=== PATIENT | female | born 1945 | race Caucasian/White ===

== ENCOUNTER 2019-07-09 01:09 | Day surgery (SDC) | payer MEDICARE, SELFPAY ==
[2019-06-24 12:36] VITALS: BMI 26.5
[2019-07-09] VITALS (9 sets, daily range): BP systolic 154–176; BP diastolic 68–95; PULSE 69–86; RESP 13–18; TEMP 36.2–36.4; O2SAT 92–100
[2019-07-09] MEDS: LACTATED RINGERS 1,000 ML 30 ML IV CONT ×2 (06:30→10:10)
[2019-07-09] MEDS: CELECOXIB 200 MG CAPSULE PO (06:40)
--- NOTE | 2019-07-09 07:03 | WPDANESEPPF ---
Anes - Initial Pre Proc Eval Procedure: Operation Date: 07/09/19 07:30 Proposed Procedures p Right Rotator Cuff Repair with Distal Clavicle Excision - Carlos Rosas MD Date/Time: 07/09/19 07:03 Surgeon: Carlos Rosas MD Pre Op Diagnosis: Right Rotator Cuff Tear, AC joint arthritis Patient Data Age: 73 Gender: F Height: 1.6 m Weight: 68.05 kg Allergies Allergy/AdvReac Type Severity Reaction Status Date / Time meperidine [From Demerol] Allergy nausea/vomi Verified 07/09/19 06:58 ting Home Medications Medication Instructions Recorded Confirmed Type tizanidine 4 mg capsule 4 mg PO TID PRN 04/26/19 06/24/19 History tramadol 50 mg tablet 50 mg PO Q6H PRN 04/26/19 06/24/19 History ibuprofen [Motrin IB] 80 mg PO DAILY 06/24/19 07/09/19 History Patient hx anesthesia problems: none Family hx anesthesia problems: none PMFSH Past Medical History Medical History (Updated 07/09/19 @ 07:04 by Allen Church MD) Arthritis Overweight (BMI 25.0-29.9) Partial deafness of right ear Right shoulder pain Rotator cuff tear Seasonal allergic rhinitis Vision abnormalities Surgical History Surgical History (Updated 06/17/19 @ 17:40 by DELONTE Lewis) H/O tubal ligation History of left breast biopsy Hx of tonsillectomy Social History Social History Smoking status: Never smoker Alcohol intake: never Substance use: unknown Gender identity (if verbalized by the patient): Female Spiritual care concerns: No Anes - Eval Final PreProcedure Day of Procedure 07/09/19 07:03 Patient weight: overweight Heart: regular rate and rhythm Lungs: clear to auscultation and normal air movement Airway: Mallampati scale class II Neurological: alert and oriented Last oral intake: >/= 8 hours ASA classification: II Emergent: no Anesthetic plan: proceed Anesthesia type and monitoring: general ETT Informed Consent: The patient's anesthetic plan and its attendant risks and benefits were discussed with the patient/family/POA. Questions were solicited and answers provided to the satisfaction of the patient/family/POA.
--- NOTE | 2019-07-09 07:34 | WPDHPUPDATE1 ---
History and Physical Update Update Date/Time: 07/09/19 07:34 History and Physical has been reviewed, including an updated exam of the patient. There are NO changes in the patient's condition. Risks, benefits, and alternatives have been discussed and questions answered. Patient agrees to proceed with procedure.
[2019-07-09] MEDS: ceFAZolin 2 GM/D5W 50 ML 2 GM/50 ML BAG IVPB (07:49)
--- NOTE | 2019-07-09 07:50 | WPDANESPNB ---
Anes - Peripheral Nerve Block Date/Time: 07/09/19 07:50 I have discussed with the patient/family/POA the placement of a peripheral nerve block for post-operative pain management, including associated risks, benefits, complications, and side effects. Alternative methods of post-operative analgesia were detailed. Questions were solicited and answers provided to the satisfaction of the patient/family/POA. Time-Out: A pre-procedural Time-Out was completed immediately before starting the procedure and confirmed: Patient Identification, Site, Procedure, Patient Position and the Availability of Requisite Equipment. Clinical Indications: Acute post-operative pain management requested by the operative surgeon. Nerve Block Insertion Note Anes-nerve block: supraclavicular right Patient position: supine Skin prep: chlorhexidine Needle: 22 gauge, stimulating, insulated echogenic needle. Needle length: 80 mm Technique: ultrasound (in plane) Injectate: bupivacaine 0.5% with epi 5 mcg/ml (20cc) Observations: tolerated well Complications: none Procedure start time:: 735 Procedure end time:: 740
--- NOTE | 2019-07-09 10:04 | PM.OP ---
Procedure Note - Brief Procedure Note - Brief Date of procedure: 07/09/19 Pre-op diagnosis: Right Rotator Cuff Tear, AC joint arthritis Post-op diagnosis: same Procedure performed: R ROT CUFF REPAIR WITH DCE Anesthesia: GETA Surgeon: Carlos Rosas MD Estimated blood loss (mL): 20 Complications: No immediate complications Condition: stable Disposition: PACU
--- NOTE | 2019-07-09 13:49 | OP_ITS ---
DATE OF PROCEDURE: 07/09/2019 PREOPERATIVE DIAGNOSES: Right rotator cuff tear and acromioclavicular joint degenerative joint disease. POSTOPERATIVE DIAGNOSES: Right rotator cuff tear and acromioclavicular joint degenerative joint disease. PROCEDURE: Repair of right rotator cuff with distal clavicle excision. ANESTHESIA: General. COMPLICATIONS: None. INDICATIONS: This is a 73-year-old female with a history of right shoulder pain and greater than 50% rotator cuff tear and severe AC joint DJD with inferiorly directed osteophytes. She was indicated for repair of rotator cuff tear and distal clavicle excision. DESCRIPTION OF PROCEDURE: The patient was taken to the operating room in stable condition and placed in supine position. General anesthesia was induced and the patient was placed in beach chair position and the right upper extremity prepared sterilely from the fingers to the axillary and cervical region. Incision was made in between the AC joint and anterolateral acromion down to the subcutaneous tissues. The AC joint was identified. It was incised. There was severe arthrosis to the AC joint and distal clavicle. Distal clavicle excision was performed removing also osteophytes from the inferior surface of the distal clavicle. Also part of the acromion which had a large osteophyte was removed as well. The AC joint was irrigated and the capsule was approximated with #0 Vicryl suture. Next a mini open incision was made through the deltoid muscle exposing the subacromial space. A limited acromioplasty was performed and then bursectomy was performed and then the rotator cuff tear was observed. It was a full-thickness tear and the tear was approximately 1.5 cm from anterior to posterior and there was about 0.5 cm of retraction. The greater tuberosity was debrided to good bleeding bone and then 3 Arthrex 5.5 suture anchors were inserted into the greater tuberosity and using #2 FiberWire the rotator cuff was repaired back to the greater tuberosity. The repair was excellent. The wound was irrigated thoroughly. There was no impingement of the acromion on the repair. The scar tissue was digitally lysed with palpation in the subacromial space. The wound was irrigated thoroughly once again using antibiotic fluid and then the deltoid was repaired using #2 FiberWire and 0 Vicryl suture. Subcutaneous tissue was approximated with 2-0 Vicryl and the skin was approximated with a running 3-0 Quill, and Dermabond was placed. Sterile dressing was applied. The patient then was placed back in the supine position, extubated and sent to recovery. [place] I MT: Natividad
== END 2019-07-09 12:17 | disposition home or self-care (01) ==
PROVIDERS: PCP Family Medicine; Visit Provider Orthopaedic Surgery
PROC: (CPT 23420; principal; 2019-07-09 07:30)
DX: M75.101 Unspecified rotator cuff tear or rupture of right shoulder, not specified as traumatic (principal); M19.011 Primary osteoarthritis, right shoulder; G89.18 Other acute postprocedural pain; J30.2 Other seasonal allergic rhinitis
CPT/HCPCS: 23412; 23120; 64415; A9270; C1713; J0330; J0690; J1100; J2250; J2405; J2704; J3010; J7120

== ENCOUNTER 2020-02-09 13:58 | Outpatient (CLI) | payer MEDICARE, SELFPAY ==
--- NOTE | ~2020-02-09 | MM_ITS ---
EXAMINATION: MM screening kasia BI w christofer HISTORY: Screening TECHNIQUE: Craniocaudal and mediolateral oblique 3-D tomosynthesis images were obtained and synthetic 2-D images were generated. CAD analysis was submitted and interpreted. COMPARISON: Comparison to multiple prior studies sequentially, with oldest reviewed study dated 01/26. BREAST PARENCHYMAL COMPOSITION: There are scattered areas of fibroglandular density. FINDINGS: There is no evidence of suspicious mass, calcification, or architectural distortion to sugg est malignancy in either breast. There has been no suspicious interval change. IMPRESSION: 1. No mammographic evidence of malignancy. 2. Recommend routine screening mammography in one year. BI-RADS Category 1: Negative Reviewed, dictated and finalized at location [facility].
== END 2020-02-09 13:59 | disposition home or self-care (01) ==
LOC: ANHIMG 14:01
PROVIDERS: PCP Family Medicine; Visit Provider Family Medicine
DX: Z12.31 Encounter for screening mammogram for malignant neoplasm of breast (principal)
CPT/HCPCS: 77063; 77067

== ENCOUNTER 2021-12-05 16:11 | Emergency (ER) | payer MEDICARE, SELFPAY ==
[2021-12-05] VITALS (9 sets, daily range): BP systolic 74–128; BP diastolic 51–76; PULSE 51–70; RESP 13–98; TEMP 37.1; O2SAT 93–99
--- NOTE | ~2021-12-05 | CT_ITS ---
EXAMINATION: CT cervical spine wo con DATE: 12/05/2021 17:16 INDICATION: Fall, striking head on floor. Neck pain. TECHNIQUE: Computed tomography (CT) of the cervical spine was performed without intravenous contrast. Automated exposure control and iterative reconstruction technique were employed. Exam dose: 201.52 mGy-cm total exam DLP. COMPARISON: None FINDINGS: There is straightening of the cervical spine which may be due to positioning and/or muscle spasm. There is fusion at the anterior and posterior elements at C2-3.. Mild degenerative disc disease at C2-3. Moderate ascites severe degenerative disease at C4-5, C5-6 and C6-7 mildly prominent posterior spurri ng at each of these levels. Prominent degenerative disease at T2-3 and T3-4. There is degenerative change at the apophyseal and uncovertebral joints throughout the cervical spine . No fracture or dislocation or locked facet or prevertebral soft tissue swelling. C1 and C2 are normal ly aligned and the odontoid process is intact. IMPRESSION: Straightening, which may be due to positioning and/or muscle spasm No fracture or dislocation or locked facet Extensive cervical spondylosis Reviewed, dictated and finalized at [facility]. Reviewed, dictated and finalized at location A.
--- NOTE | ~2021-12-05 | XR_ITS ---
EXAMINATION: XR chest 2V 12/05/2021 17:05 INDICATION: Weakness PROCEDURE: 2 view chest COMPARISON: No prior studies for comparison. FINDINGS: The lungs are clear. The cardiomediastinal silhouette is within normal limits. There are no pleural effusions. There is no pneumothorax suspected. IMPRESSION: 1: NO ACUTE CARDIOPULMONARY DISEASE. Reviewed, dictated and finalized at location A.
--- NOTE | ~2021-12-05 | CT_ITS ---
EXAMINATION: CT brain wo con DATE: 12/05/2021 17:16 INDICATION: Patient fell, striking head on floor. Dizziness. Neck pain. TECHNIQUE: Computed tomography (CT) of the head was performed without intravenous contrast. The mA wa s adjusted according to patient size. Iterative reconstruction technique was employed. Exam dose: 52 9.67 mGy-cm total exam DLP. COMPARISON: None FINDINGS: No intracranial mass lesion or hemorrhage or cerebrovascular accident is detected. No midli ne shifts or mass effect. No subdural or epidural hematoma. Mild cerebral atherosclerosis. No fracture or bone destruction of the cranial vault. There is some mucoperiosteal thickening of the upper aspect of the barely included right maxillary si nus. The frontal sinuses are not developed. The sphenoid sinuses are unremarkable. There is minimal d evelopment of the mastoid air cells. IMPRESSION: No skull fracture or acute intracranial abnormality Reviewed, dictated and finalized at [facility]. Reviewed, dictated and finalized at location [facility].
--- NOTE | 2021-12-05 16:28 | ECG_ITS ---
Measurements Intervals [place] Rate: 50 P: 60 UT: 195 QRS: 70 QRSD: 80 T: 61 QT: 401 QTc: 366 Interpretive Statements SINUS BRADYCARDIA BORDERLINE ECG Electronically Signed On 12-05-2021 16:38:20 CDT by Erick Foss D.O.
[2021-12-05 16:40] LABS: Basophils Percent Auto 0.2 % (0.2-1.2); Hematocrit 38.1 % (37.0-47.0); Hemoglobin 12.8 g/dL (12.0-15.0); Lymphocytes Absolute Auto 1.11 K/mm3 (0.9-3.2); Lymphocytes Percent Auto 24.8 % (18.3-44.2); Mean Corpuscular HGB Conc 33.6 g/dl (32-36); Mean Corpuscular Hemoglobin 29.4 pg (26-34); Mean Corpuscular Volume 87.4 fl (80-100); Monocytes Absolute Auto 0.3 K/mm3 (0.1-0.6); Neutrophils Absolute Auto 3.1 K/mm3 (1.3-6.7); Platelet Count Result 147 k/mm3 (150-375); Red Blood Count 4.36 M/mm3 (4.2-5.4); Red Cell Distribution Width 13.8 % (11.5-14.5); White Blood Count 4.5 K/mm3 (4.5-10.0)
--- NOTE | 2021-12-05 16:48 | PC.NURSE ---
pt is refusing to go to get her x-ray. Nurse notified
[2021-12-05 16:51] LABS: Alanine Aminotransferase 36 U/L (6-35); Albumin Level 4.3 g/dL (3.5-5.1); Alkaline Phosphatase 62 U/L (38-126); Anion Gap 8 mmol/L (8-16); Aspartate Amino Transferase 52 U/L (14-36); Bilirubin,Total 0.3 mg/dL (0.2-1.3); Blood Urea Nitrogen 14 mg/dL (7-17); Calcium 8.4 mg/dL (8.4-10.2); Carbon Dioxide 23 mmol/L (22-30); Chloride 103 mmol/L (98-107); Estimated CRCL calculation 51 ml/min; Estimated Glomerular Filt Rate > 60; Glucose 154 mg/dL (65-110); Potassium 3.3 mmol/L (3.4-5.0); Sodium 134 mmol/L (137-145)
[2021-12-05] MEDS: ONDANSETRON INJ 4 MG/2 ML VIAL (17:32)
[2021-12-05] MEDS: SODIUM CHLORIDE 0.9% IV 1,000 ML 999 ML IV CONT ×2 (17:32→19:01)
[2021-12-05 18:25] LABS: Appearance Urine Clear (Clear); Bilirubin Urine Negative (Negative); Blood Urine Negative (Negative); Color Urine Yellow (Yellow); Glucose Urine UA Negative (Negative); Ketones Urine Negative (Negative); Leukocyte Esterase Ur Trace LEU/UL (Negative); Nitrate Urine Negative (Negative); Protein Urine Negative (Negative); Urobilinogen Urine 0.2 mg/dL (<2.0); pH Urine 5.5 (5.0-9.0)
--- NOTE | 2021-12-05 18:49 | ED.GENADULT ---
HPI - General Adult General Chief complaint: Fall Stated complaint: weakness, dizziness Time Seen by Provider: 12/05/21 16:18 History of Present Illness HPI narrative: Patient is a 76-year-old female who presents ER with feeling fatigued and dizzy. Ongoing over the last couple days. Feels dizzy with lying to sitting sitting to standing. No loss of consciousness. No fevers or chills or sweats. Patient did fall 2 days ago striking her head. She had some pain in her neck and was scheduled for an outpatient x-ray. No numbness or tingling in the arms or legs. She is not on blood thinner. Denies focal weakness arm or leg. No slurred speech or facial droop. No new medications. No urinary frequency urgency or dysuria. Denies fevers or chills or sweats. Related Data Home Medications Medication Instructions Recorded Confirmed tizanidine 4 mg capsule 4 mg PO TID PRN Muscle Spasm 04/26/19 09/23/19 tramadol 50 mg tablet 50 mg PO Q6H PRN Pain 04/26/19 09/23/19 ibuprofen 200 mg tablet (Motrin IB) 80 mg PO DAILY 06/24/19 09/23/19 Allergies Allergy/AdvReac Type Severity Reaction Status Date / Time meperidine [From Demerol] Allergy nausea/vomi Verified 12/05/21 16:26 ting Review of Systems Review of Systems: All systems reviewed & are unremarkable except as noted in HPI and below Constitutional: Constitutional: Denies chills, Reports fatigue and Denies fever(s) ENT: Denies nasal congestion and Denies sore throat Cardiovascular: Cardiovascular: Denies chest pain, Denies rapid heart rate and Denies radiating jaw, neck or arm pain Respiratory: Respiratory: Denies cough and Denies dyspnea Gastrointestinal: Gastrointestinal: Denies abdominal pain, Denies nausea and Denies vomiting Neurologic: Reports dizziness, Denies focal weakness and Denies numbness PMF Past Medical History Medical History (Updated 12/05/21 @ 20:19 by Rhett Hunt MD) Arthritis Overweight (BMI 25.0-29.9) Partial deafness of right ear Right shoulder pain Rotator cuff tear Seasonal allergic rhinitis Vision abnormalities Surgical History Surgical History H/O tubal ligation History of left breast biopsy Hx of repair of right rotator cuff Hx of tonsillectomy Family History Family History Daughter Breast cancer Social History Social History Smoking status: Never smoker Alcohol intake: never Substance use: unknown Gender identity (if verbalized by the patient): Female Spiritual care concerns: No Exam Narrative: GENERAL: Well-appearing, well-nourished, and in no acute distress. HEAD: Normocephalic, atraumatic. EYES: PERRL and EOMI. NECK: Supple. CHEST: Clear to auscultation. No respiratory distress. HEART: Regular rate and rhythm. Normal peripheral pulses. ABDOMEN: Soft, nontender, nondistended. EXTREMITIES: Normal range of motion. No edema. SKIN: Warm, dry, no rash. NEURO: No upper or lower extremity drift. No facial droop or slurred speech. No expressive aphasia. Alert and oriented x3. PSYCH: Normal mood and affect. Course Course Emergency Course: Patient resting comfortably. Feels markedly improved after IV fluid. Discharge home. Vital Signs Vital signs: Vital Signs Temperature 98.8 F 12/05/21 16:13 Pulse Rate 62 12/05/21 16:13 Respiratory Rate 98 H 12/05/21 16:13 Blood Pressure 98/51 L 12/05/21 16:13 Pulse Oximetry 98 12/05/21 16:13 Oxygen Delivery Room Air 12/05/21 16:13 Temperature 98.8 F 12/05/21 16:13 Pulse Rate 65 12/05/21 18:53 Respiratory Rate 13 12/05/21 18:43 Blood Pressure 97/56 L 12/05/21 18:53 Pulse Oximetry 99 12/05/21 18:43 Oxygen Delivery Room Air 12/05/21 16:23 Medical Decision Making Vital Signs Vital Signs: Vital Signs Temperature 98.8 F 12/05/21 16:13 P
[2021-12-05 18:53] LABS: Mucus Urine Rare /lpf; Squamous Epithelial Cell Urine Occasional /hpf (Few); WBC Urine 0-3 /hpf
[2021-12-05 19:10] LABS: Add Urine Microscopic? YES
== END 2021-12-05 20:49 | disposition home or self-care (01) ==
PROVIDERS: Emergency Provider Emergency Medicine; PCP Family Medicine
DX: I95.1 Orthostatic hypotension (principal); M19.90 Unspecified osteoarthritis, unspecified site
CPT/HCPCS: 36415; 70450; 71046; 72125; 80053; 81001; 85025; 93005; 96361; 96374; 99284; J2405; J7030

== ENCOUNTER 2024-02-06 13:50 | Outpatient (CLI) | payer MEDICARE, SELFPAY ==
--- NOTE | ~2024-02-06 | XR_ITS ---
EXAMINATION: XR knee LT min 4V DATE: 02/06/2024 14:13 INDICATION: Left knee pain. TECHNIQUE: 4 views of left knee were obtained. COMPARISON: None. FINDINGS: Alignment is normal. No fracture. There is moderate osteoarthritis of medial and patellofem oral compartments and mild osteoarthritis of lateral compartment. No knee joint effusion. IMPRESSION: 1. Moderate left knee osteoarthritis. Reviewed, dictated and finalized at location A.
--- NOTE | ~2024-02-06 | XR_ITS ---
XR hip LT min 3V w AP pelvis 02/06/2024 14:13 Indication: Left hip pain Procedure: 3 views left hip including AP pelvis Comparison: No prior studies for comparison. Findings: There is mild osteoarthritis of the hips. Pelvic rings intact. No fracture, subluxation or dislocation. No soft tissue abnormality. No foreign bodies. Impression: 1: Mild osteoarthritis of the hips. Reviewed, dictated and finalized at location [facility]. Impression: 1: Mild osteoarthritis of the hips.
--- NOTE | ~2024-02-06 | XR_ITS ---
EXAMINATION: XR shoulder LT min 2V DATE: 02/06/2024 14:13 INDICATION: Left shoulder pain. TECHNIQUE: 4 views of left shoulder were obtained. COMPARISON: None. FINDINGS: Alignment is normal. No fracture. There is mild osteoarthritis of glenohumeral joint and se noni osteoarthritis of acromioclavicular joint. IMPRESSION: 1. Polyarticular osteoarthritis. Reviewed, dictated and finalized at location A.
== END 2024-02-06 13:51 | disposition home or self-care (01) ==
LOC: ANHIMG 13:56
PROVIDERS: PCP Nurse Practitioner Family; Visit Provider Nurse Practitioner Family
DX: M17.12 Unilateral primary osteoarthritis, left knee (principal); M16.0 Bilateral primary osteoarthritis of hip; M19.012 Primary osteoarthritis, left shoulder
CPT/HCPCS: 73030; 73502; 73564